=== PATIENT | female | born 1970 | race Asian ===

== ENCOUNTER 2023-09-26 10:35 | Emergency (ER) | payer MEDICAID ==
[~2023-09-26] VITALS: Ht 154.9 cm; Wt 70.8 kg
[~2023-09-26 10:35] MED LIST: HYDR-3917 PO; IBUP-1969 PO
[2023-09-26 10:46] VITALS: BP_SYST 164; PULSE 86; RESP 16; TEMP 96.9; O2SAT 95
[2023-09-26 11:31] LABS: BASOPHILS # (AUTO) 0.1 K/uL (0.0-0.2); BASOPHILS % (AUTO) 0.6 % (0.0-2.0); EOSINOPHILS # (AUTO) 0.7 K/uL (0.0-0.4); EOSINOPHILS % (AUTO) 5.7 % (0.0-4.0); HEMOGLOBIN 11.9 g/dL (12.0-16.0); LYMPHOCYTES # (AUTO) 4.4 K/uL (1.0-5.5); MEAN CORPUSCULAR HEMOGLOBIN 27 pg (27-31); MEAN CORPUSCULAR HGB CONC 32 % (32-36); MEAN CORPUSCULAR VOLUME 85 fL (79.0-98.0); MONOCYTES # (AUTO) 1.1 K/uL (0.0-1.0); MONOCYTES % (AUTO) 9.8 % (1.7-9.3); NEUTROPHILS # (AUTO) 5.3 K/uL (1.8-7.7); NEUTROPHILS % (AUTO) 45.9 % (40.0-70.0); PLATELET COUNT (AUTO) 334 K/uL (130-430); RED BLOOD CELL COUNT(AUTO) 4.37 MIL/uL (4.2-6.2); RED CELL DISTRIBUTION WIDTH 14.6 % (9.0-15.0); WHITE BLOOD COUNT (AUTO) 11.6 K/uL (4.8-10.8)
[2023-09-26 11:49] LABS: ANION GAP 7 (5-15); CALCIUM 8.9 mg/dL (8.4-11.0); CARBON DIOXIDE 27 mmol/L (23-29); CHLORIDE 107 mmol/L (98-107); CREATININE 0.58 mg/dL (0.55-1.30); GFR AFRICAN AMERICAN 139 mL/min (>90); GFR NON AFRICAN-AMERICAN 115 mL/min (>90); GLUCOSE 123 mg/dL (74-106); POTASSIUM 3.8 mmol/L (3.5-5.1); SODIUM SERUM 141 mmol/L (136-145); UREA NITROGEN, BLOOD 14 mg/dL (8-21)
[2023-09-26] MEDS ORDERED: iohexoL 350 mgI/mL, 100 ML INFUS..BTL IV ONE (12:27)
[2023-09-26] MEDS: NACL 0.9% 1,000 ML IV ONE (12:57)
[2023-09-26] MEDS ORDERED: NEU300 PO (13:27)
[2023-09-26 13:45] VITALS: BP_SYST 152; PULSE 83; RESP 18; TEMP 97.3; O2SAT 95
== END 2023-09-26 13:37 | disposition home or self-care (01) ==
LOC: SED 10:35
DX: M54.12 Radiculopathy, cervical region (principal); M25.511 Pain in right shoulder; M25.512 Pain in left shoulder; M79.602 Pain in left arm; R20.0 Anesthesia of skin; Z79.899 Other long term (current) drug therapy
CPT/HCPCS: 99285; 70496; 96360; 71045; 80048; 83880; 85025; 84484; 36415; 93005; 70498; 72125; 70450; Q9967; J7030